=== PATIENT | female | born 1965 | race Caucasian/White ===

== ENCOUNTER 2023-03-24 10:47 | Day surgery (SDC) | payer OTHER ==
[2023-03-24] VITALS (17 sets, daily range): BP systolic 111–154; BP diastolic 60–86
[~2023-03-24] VITALS: Ht 157.5 cm; Wt 123.9 kg
[2023-03-24] MEDS ORDERED: DULO60 PO (11:23)
[2023-03-24] MEDS ORDERED: ACYC400 PO (11:23)
[2023-03-24] MEDS ORDERED: Ativan1 MG PO (11:24)
[2023-03-24] MEDS ORDERED: LOSA50 PO (11:24)
[2023-03-24] MEDS ORDERED: TIZA4 PO (11:25)
--- NOTE | 2023-03-24 12:31 | NUR ---
1215 DR MILES AT BEDSIDE TO PERFORM RITHT AXILLARY NERVE BLOCK FOR POST OP PAIN. TIMEOUT COMPLETE BY DR MILES. PT TOLERATED PROCEDURE WELL.
--- NOTE | 2023-03-24 12:42 | NUR ---
Ambulatory in Day Surgery History, Chart, Medications and Allergies reviewed before start of procedure. Lungs clear T/O to Auscultation. Patient confirms NPO status and agrees with scheduled surgery. Pre-Op teaching done. Pt verbalizes understanding. PT GLASSES GIVEN TO DAUGHTER FOR SAFEKEEPING.
--- NOTE | 2023-03-24 15:30 | NUR ---
INTO STEP S/P ORIF OF RIGHT ARM. PT IS A&O X4. REPORTS 4/10 RIGHT ARM PAIN. CAP REFILL < 3 SEC. RIGHT ARM WITH INDY BANDAGE-C/D/I AND ELEVATED ON PILLOW. GROSS MOTOR FUNCTION TO RIGHT UPPER ARM. RIGHT HAND REMAINS NUMB. PT DENIES NAUSEA. SATS >96% ON 3 LITERS NASAL CANULA. PT VOICE IS HOARSE, BUT VOICE QUALITY GOOD OVERALL. PT REPORTS MILD THROAT DISCOMFORT. PT STATES THAT SHE IS UNABLE TO TAKE PERCOCET IT CAUSES SEVERE ITCHING. PERCOCET RX DISCARDED AND DR. MENENDEZ TO COME BY LATER TO ORDER HYDROCODONE.
--- NOTE | 2023-03-24 17:28 | NUR ---
Patient up to Ambulate independently. Gait steady. Discharge instructions reviewed with patient. Patient verbalizes understanding. Copy given to patient to take home. History, Chart, Medications and Allergies reviewed before start of procedure.Patient confirms NPO status and agrees with scheduled surgery. Patient States Post-Procedure ride home has been arranged. Discharged via wheelchair to private car for ride home.
== END 2023-03-24 17:30 | disposition home or self-care (01) ==
LOC: ORSCMMR 10:47 → ORD 12:30 → ORSCMMR 17:30
PROVIDERS: Orthopaedic Surgery
PROC: 01N50ZZ Release Median Nerve, Open Approach (ICD-10-PCS; principal; 2023-03-24 12:30)
PROC: 0PSH04Z Reposition Right Radius with Internal Fixation Device, Open Approach (ICD-10-PCS; principal; 2023-03-24 12:30)
DX: S52.531A Colles' fracture of right radius, initial encounter for closed fracture (principal); G56.01 Carpal tunnel syndrome, right upper limb; I10 Essential (primary) hypertension; M79.7 Fibromyalgia; F41.9 Anxiety disorder, unspecified; F17.210 Nicotine dependence, cigarettes, uncomplicated; E66.01 Morbid (severe) obesity due to excess calories; Z68.43 Body mass index [BMI] 50.0-59.9, adult; Z79.899 Other long term (current) drug therapy
CPT/HCPCS: 73110; A9270; C1713; J0690; J1100; J2250; J2405; J2704; J2795; J3010; J7120